=== PATIENT | male | born 1975 | race African-American/Black ===

== ENCOUNTER 2021-11-30 15:29 | Emergency (ER) | payer OTHER, SELFPAY ==
[2021-11-30 15:32] VITALS: BP 135/75; PULSE 90; RESP 20; TEMP 36.8; O2SAT 98; BMI 18.6
== END 2021-11-30 19:13 | disposition left against medical advice (07) ==
PROVIDERS: Emergency Provider Emergency Medicine
DX: T23.001A Burn of unspecified degree of right hand, unspecified site, initial encounter (principal); X12.XXXA Contact with other hot fluids, initial encounter; Y93.89 Activity, other specified; Y92.9 Unspecified place or not applicable; Y99.9 Unspecified external cause status
CPT/HCPCS: 99281